=== PATIENT | male | born 1940 | race Caucasian/White ===

== ENCOUNTER 2025-02-25 14:45 | Outpatient (RCR) | payer MEDICARE ==
[~2025-02-25 14:45] MED LIST: ASPIRIN325 MG PO; ATORVASTATIN CA20 MG PO; COZAAR50 MG PO; DIOVAN40 MG; MECLIZINE HCL12.5 MG PO; ULTRAM 50MG50 MG PO
== END 2025-03-03 ==
LOC: PT 14:45
PROVIDERS: ATTEND Neurological Surgery
DX: M51.9 Unspecified thoracic, thoracolumbar and lumbosacral intervertebral disc disorder (principal)

== ENCOUNTER 2025-03-25 14:47 | Outpatient (RCR) | payer MEDICARE | END 2025-04-03 | LOC: PT 14:47 | PROVIDERS: ATTEND Neurological Surgery | DX: M51.9 Unspecified thoracic, thoracolumbar and lumbosacral intervertebral disc disorder (principal) ==